=== PATIENT | female | born 1985 | race Caucasian/White ===

== ENCOUNTER 2017-10-26 09:37 | Inpatient (IN) | payer MEDICAID, OTHER ==
[~2017-10-26 09:37] MED LIST: Citric Acid/Sodium Citrate Solution 30 ML Cup PO SCH; Oxytocin/0.9 % Sodium Chloride 30 UNIT/500 ML BAG IV SCH; Sodium Chloride 0.9% 10 ML Syringe FLUSH PRN; Sodium Chloride 0.9% 2.5 ML Syringe FLUSH PRN; ceFAZolin 2 GM in Premix Bag 1 BAG IV ONE
[2017-10-26] MEDS ORDERED: Ondansetron 4 MG/2 ML SDV ONE (10:10)
[2017-10-26] MEDS ORDERED: ePHEDrine 50 MG/ML SDV ONE (10:10)
[2017-10-26] MEDS ORDERED: Oxytocin 10 Units/1 ML SDV ONE (10:10)
[2017-10-26] MEDS ORDERED: Sodium Chloride 0.9% 20 ML ONE ×2 (10:12→12:00)
[2017-10-26] MEDS: Lactated Ringers 1,000 ML IV SCH ×3 (10:25→11:47)
--- NOTE | 2017-10-26 11:06 | PCM.PREANE ---
Preanesthetic Assessment - Anesthesia/Transfusion/Family Hx Anesthesia History: Prior Anesthesia Reaction Other Type of Anesthesia Reaction Comment: panic attacks, anxiety, N&V Family History of Anesthesia Reaction: No Transfusion History: No Prior Transfusion(s) - Review of Systems General: No Symptoms Pulmonary: No Symptoms Cardiovascular: No Symptoms Gastrointestinal: No Symptoms Neurological: No Symptoms Other: Reports: None - Physical Assessment NPO Status Date: 10/25/17 Height: 1.75 m Weight: 117.934 kg ASA Class: 2 Mental Status: Alert & Oriented x3 Airway Class: Mallampati = 1 Dentition: Reports: Normal Dentition ROM/Head Extension: Full Lungs: Clear to Auscultation, Normal Respiratory Effort Cardiovascular: Regular Rate, Regular Rhythm - Lab Values: Laboratory Last Values WBC 9.01 K/uL (4.0-11.0) 10/26/17 10:23 RBC 4.02 M/uL (4.30-5.90) L 10/26/17 10:23 Hgb 11.6 g/dL (12.0-16.0) L 10/26/17 10:23 Hct 34.5 % (36.0-46.0) L 10/26/17 10:23 MCV 85.8 fL (80.0-98.0) 10/26/17 10:23 MCH 28.9 pg (27.0-32.0) 10/26/17 10:23 MCHC 33.6 g/dL (31.0-37.0) 10/26/17 10:23 RDW Std Deviation 41.7 fl (28.0-62.0) 10/26/17 10:23 RDW Coeff of Toni 13 % (11.0-15.0) 10/26/17 10:23 Plt Count 132 K/uL (150-400) L 10/26/17 10:23 MPV 11.60 fL (7.40-12.00) 10/26/17 10:23 Nucleated RBC % 0.0 /100WBC 10/26/17 10:23 Nucleated RBCs # 0 K/uL 10/26/17 10:23 - Allergies Allergies/Adverse Reactions: Allergies Allergy/AdvReac Type Severity Reaction Status Date / Time codeine Allergy Abdominal Verified 10/23/17 10:28 Pain Penicillins Allergy Rash Verified 10/23/17 10:27 promethazine [From Phenergan] Allergy Anxiety Verified 10/23/17 10:28 - Anesthesia Plan Pre-Op Medication Ordered: Antacids - Acknowledgements Anesthesia Type Planned: Spinal Pt an Appropriate Candidate for the Planned Anesthesia: Yes Alternatives and Risks of Anesthesia Discussed w Pt/Guardian: Yes Pt/Guardian Understands and Agrees with Anesthesia Plan: Yes Additional Comments: plan: spinal with intrathecal duramorph wishes sedation for anxiety after baby is born, remote hx of LOBO, off buprenorphine x 4 years. risks and options discussed. 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: Neurological History: Reports: Migraines Other Neuro History: hx of migranes when younger Psychiatric History: Reports: Anxiety, Depression Other Psychiatric History: no taking medication Endocrine/Metabolic History: Reports: Obesity/BMI 30+ - Past Surgical History GI Surgical History: Reports: Cholecystectomy Female Surgical History: Reports: Section, Other (See Below) Other Female Surgeries/Procedures: previous x4, hx of HPV - SUBSTANCE USE Smoking Status *Q: Former Smoker Tobacco Use Within Last Twelve Months: No Recreational Drug Use History: No - HOME MEDS Home Medications: Home Meds Vit W-Ca,Fe,FA(<1 mg) [ Vitamins] 1 tab PO DAILY 10/23/17 [ History] Ranitidine [Zantac] 75 mg PO DAILY 10/23/17 [History] - CURRENT (IN HOUSE) MEDS Current Meds: Current Medications Citric Acid/Sodium Citrate (Bicitra Solution) 30 ml PO .ONCE CARMINA Lactated Ringer's (Ringers, Lactated) 1,000 mls @ 500 mls/hr IV .BOLUS CARMINA Last Admin: 10/26/17 10:25 Dose: 500 mls/hr Oxytocin/Sodium Chloride (Oxytocin 30 Unit/500 Ml-Ns) 30 unit in 500 mls @ 250 mls/hr IV TITRATE CARMINA Sodium Chloride (Saline Flush) 10 ml FLUSH ASDIRECTED PRN PRN Reason: Keep Vein Open Sodium Chloride (Saline Flush) 2.5 ml FLUSH ASDIRECTED PRN PRN Reason: Keep Vein Open Discontinued Medications Ephedrine Sulfate (Ephedrine Sulfate) Confirm Administered Dose 50 mg .ROUTE .STK-MED ONE Stop: 10/26/17 10:11 Cefazolin Sodium/Dextrose 2 gm (/ Premix) 50 mls @ 100 mls/hr IV ONETIME ONE Stop: 10/25/17 14:52 Sodium Chloride (Normal Saline) Confirm Administered Dose 20 mls @ as directed .ROUTE .STK-MED ONE Stop: 10/26/17 10:13 Ondansetron HCl (Zofran) Confirm Administered Dose 4 mg .ROUTE .STK-MED ONE Stop: 10/26/17 10:11 Oxytocin (Pitocin) Confirm Administered Dose 20 unit .ROUTE .STK-MED ONE Stop: 10/26/17 10:11
[2017-10-26] MEDS ORDERED: Octyl 2-Cyanoacrylate 1 Tube ONE ×2 (11:30→13:01)
[2017-10-26] MEDS ORDERED: Morphine PF 1 MG/ML Amp ONE (11:44)
--- NOTE | 2017-10-26 11:44 | PCM.LDHP ---
L&D History of Present Illness - General Date of Service: 10/26/17 Admit Problem/Dx: Patient Status Order with Admit Dx/Problem 10/25/17 14:17 Patient Status [ADT] Routine Admission Diagnosis/Problem Admission Diagnosis/Problem Source of Information: Patient History Limitations: Reports: No Limitations - History of Present Illness Improves with: Reports: None Worsens with: Reports: None Associated Symptoms: Reports: N - Related Data Allergies/Adverse Reactions: Allergies Allergy/AdvReac Type Severity Reaction Status Date / Time codeine Allergy Abdominal Verified 10/23/17 10:28 Pain Penicillins Allergy Rash Verified 10/23/17 10:27 promethazine [From Phenergan] Allergy Anxiety Verified 10/23/17 10:28 Home Medications: Home Meds Vit W-Ca,Fe,FA(<1 mg) [ Vitamins] 1 tab PO DAILY 10/23/17 [ History] Ranitidine [Zantac] 75 mg PO DAILY 10/23/17 [History] Past Medical History Respiratory History: Reports: Asthma Other Respiratory History: hx of asthma as a child Gastrointestinal History: Reports: GERD Genitourinary History: Reports: UTI, Recurrent 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: Neurological History: Reports: Migraines Other Neuro History: hx of migranes when younger Psychiatric History: Reports: Anxiety, Depression Other Psychiatric History: no taking medication Endocrine/Metabolic History: Reports: Obesity/BMI 30+ - Past Surgical History GI Surgical History: Reports: Cholecystectomy Female Surgical History: Reports: Section, Other (See Below) Other Female Surgeries/Procedures: previous x4, hx of HPV Social & Family History - Family History Cardiac: Reports: High Cholesterol, Hypertension, [place] Respiratory: Reports: Asthma, COPD, Other (See Below) Other Respiratory Family Hisory: Emphysema GI: Reports: Inflammatory Bowel Disease, Other (See Below) Other GI Family History: Crohn's Disease OBGYN: Reports: Musculoskeletal: Reports: Arthritis Psychiatric: Reports: Anxiety, Depression Endocrine/Metabolic: Reports: Diabetes, type II Oncologic: Reports: Colon, Lung, Pancreatic - Tobacco Use Smoking Status *Q: Former Smoker Used Tobacco, but Quit: Yes Month/Year Tobacco Last Used: 01/2019 Tobacco Use Comment: no smoking in the last year (on and off before that) - Caffeine Use Caffeine Use: Reports: Coffee, Soda, Tea - Recreational Drug Use Recreational Drug Use: No Drug Use in Last 12 Months: No Recreational Drug Type: Reports: Marijuana/Hashish, Methamphetamine, Morphine, Oxycodone Recreational Drug Last Use: 5 years ago H&P Review of Systems - Review of Systems: Review Of Systems: See Below General: Reports: No Symptoms HEENT: Reports: No Symptoms Pulmonary: Reports: No Symptoms Cardiovascular: Reports: No Symptoms Gastrointestinal: Reports: No Symptoms Genitourinary: Reports: No Symptoms Musculoskeletal: Reports: No Symptoms Skin: Reports: No Symptoms Psychiatric: Reports: No Symptoms Neurological: Reports: No Symptoms Hematologic/Lymphatic: Reports: No Symptoms Immunologic: Reports: No Symptoms L&D Exam - Exam Exam: See Below - Vital Signs Weight: 117.934 kg - OB Specific Contraction Intensity: Mild Movement: Active Heart Tones: Present Presentation: Vertex - Exam General: Alert, Oriented HEENT: PERRLA, Conjunctiva Clear, EACs Clear, EOMI, Hearing Intact, Mucosa Moist & [place], Nares Patent, Normal Nasal Septum, Posterior Pharynx Clear, TMs Clear Neck: Supple, Trachea Midline Lungs: Clear to Auscultation, Normal Respiratory Effort Cardiovascular: Regular Rate, Regular Rhythm GI/Abdominal Exam: Normal Bowel Sounds, Soft, Non-Tender, No Organomegaly, No Distention, No Abnormal Bruit, No Mass, Pelvis Stable Rectal Exam: Normal Exam, Normal Rectal Tone Genitourinary: Normal external exam, Normal bimanual exam, Normal speculum exam Back Exam: Normal Inspection, Full Range of Motion Extremities: Normal Inspection, Normal Range of Motion, Non-Tender, No Pedal Edema, Normal Capillary Refill Skin: Warm, Dry, Intact Neurological: Cranial Nerves Intact, Reflexes Equal Bilateral Psychiatric: Alert, Normal Affect, Normal Mood - Patient Data Lab Results Last 24 hrs: Laboratory Results - last 24 hr 10/26/17 10/26/17 Range/Units 10:23 10:23 WBC 9.01 (4.0-11.0) K/uL RBC 4.02 L (4.30-5.90) M/uL Hgb 11.6 L (12.0-16.0) g/dL Hct 34.5 L (36.0-46.0) % MCV 85.8 (80.0-98.0) fL MCH 28.9 (27.0-32.0) pg MCHC 33.6 (31.0-37.0) g/dL RDW Std Deviation 41.7 (28.0-62.0) fl RDW Coeff of Toni 13 (11.0-15.0) % Plt Count 132 L (150-400) K/uL MPV 11.60 (7.40-12.00) fL Nucleated RBC % 0.0 /100WBC Nucleated RBCs # 0 K/uL Blood Type O NEGATIVE Antibody Screen NEGATIVE Result Diagrams: 10/26/17 10:23 Problem List Initiated/Reviewed/Updated: Yes Orders Last 24hrs: Active Orders 24 hr Category Date Time Status Patient Status [ADT] Routine ADT 10/25/17 14:17 Active Non Stress Test [RC] PER UNIT ROUTINE Care 10/25/17 14:17 Active Procedure Site Prep Instruct [RC] ASDIRECTED Care 10/25/17 14:17 Active Up ad Winter [RC] ASDIRECTED Care 10/25/17 14:17 Active Vital Signs [RC] PER UNIT ROUTINE Care 10/25/17 14:17 Active Citric Acid/Sodium Citrate [Bicitra Solution] Med 10/25/17 14:30 Active 30 ml PO .ONCE Lactated Ringers [Ringers, Lactated] 1,000 ml Med 10/25/17 14:30 Active IV .BOLUS Oxytocin/0.9 % Sodium Chloride [Oxytocin 30 Unit/500 ML Med 10/25/17 14:30 Active -NS] 30 unit in 500 ml IV TITRATE Sodium Chloride 0.9% [Saline Flush] Med 10/25/17 14:17 Active 10 ml FLUSH ASDIRECTED PRN Sodium Chloride 0.9% [Saline Flush] Med 10/25/17 14:17 Active 2.5 ml FLUSH ASDIRECTED PRN Peripheral IV Insertion Adult [OM.PC] Routine Oth 10/25/17 14:17 Ordered Schedule Procedure [COMM] Per Unit Routine Oth 10/25/17 14:17 Ordered Resuscitation Status Routine Resus Stat 10/25/17 14:17 Ordered Medication Orders Citric Acid/Sodium Citrate (Bicitra Solution) 30 ml PO .ONCE CARMINA Lactated Ringer's (Ringers, Lactated) 1,000 mls @ 500 mls/hr IV .BOLUS CARMINA Last Admin: 10/26/17 11:16 Dose: 500 mls/hr Infusion: 10/26/17 11:16 Dose: 500 mls/hr Admin: 10/26/17 10:25 Dose: 500 mls/hr Oxytocin/Sodium Chloride (Oxytocin 30 Unit/500 Ml-Ns) 30 unit in 500 mls @ 250 mls/hr IV TITRATE CARMINA Sodium Chloride (Saline Flush) 10 ml FLUSH ASDIRECTED PRN PRN Reason: Keep Vein Open Sodium Chloride (Saline Flush) 2.5 ml FLUSH ASDIRECTED PRN PRN Reason: Keep Vein Open Assessment/Plan Comment:: Repeat C/section and tubal ligation.
[2017-10-26] MEDS ORDERED: ceFAZolin 1 GM Vial ONE (12:00)
[2017-10-26] MEDS ORDERED: Midazolam 1 MG/ML 2 ML SDV ONE (12:13)
[2017-10-26] MEDS ORDERED: Propofol 200 MG/20 ML SDV ONE (12:19)
[2017-10-26] MEDS ORDERED: Phenylephrine/Normal Saline 100 MCG/ML 10 ML Syringe ONE (12:20)
[2017-10-26] MEDS ORDERED: Glycopyrrolate 0.2 MG/ML SDV ONE (12:24)
[2017-10-26] MEDS ORDERED: fentaNYL 100 MCG/2 ML SDV ONE ×2 (12:45→12:53)
[2017-10-26] MEDS ORDERED: Ondansetron 4 MG/2 ML SDV IV PRN (13:03)
[2017-10-26] MEDS ORDERED: Acetaminophen/oxyCODONE 325-5 MG Tab PO PRN ×2 (13:03)
[2017-10-26] MEDS ORDERED: Bisacodyl 10 MG Supp RECTAL PRN (13:03)
[2017-10-26] MEDS ORDERED: Lanolin 100% Cream 7 GM Tube TOP PRN (13:03)
--- NOTE | 2017-10-26 13:06 | PCM.OPNOTE ---
- General Post-Op/Procedure Note Date of Surgery/Procedure: 10/26/17 Operative Procedure(s): Repeat C/section, Bilateral Salpengectomy Post-Op Diagnosis: Same Anesthesia Technique: Spinal Primary Surgeon: Mohsen Clements EBL in mLs: 750 Complications: None Condition: Good
[2017-10-26] MEDS ORDERED: Nalbuphine 10 MG/ML 10 ML MDV IVPUSH PRN (13:10)
[2017-10-26] MEDS ORDERED: Lactated Ringers 1,000 ML IV SCH (13:15)
--- NOTE | 2017-10-26 13:31 | PCM.POSTAN ---
POST ANESTHESIA ASSESSMENT - MENTAL STATUS Mental Status: Alert, Oriented - VITAL SIGNS Pulse Rate: 77 SaO2: 94 (RA) Resp Rate: 16 Blood Pressure: 114/60 - RESPIRATORY Respiratory Status: Respiratory Rate WNL, Airway Patent, O2 Saturation Stable - CARDIOVASCULAR CV Status: Pulse Rate WNL, Blood Pressure Stable - GASTROINTESTINAL GI Status: No Symptoms - PAIN Pain Score: 3 - POST OP HYDRATION Hydration Status: Adequate & Stable
[2017-10-26] MEDS: Ketorolac 30 MG/ML SDV IVPUSH SCH ×2 (13:36→19:49)
[2017-10-26] MEDS: fentaNYL 100 MCG/2 ML SDV IVPUSH PRN ×2 (14:35→20:01)
--- NOTE | 2017-10-26 15:42 | OR ---
SURGEON: Mohsen Clements MD DATE OF PROCEDURE: PREOPERATIVE DIAGNOSES: 1. Intrauterine 39+ weeks. 2. Previous multiple sections. 3. Desires permanent sterilization. POSTOPERATIVE DIAGNOSES: 1. Intrauterine 39+ weeks. 2. Previous multiple sections. 3. Desires permanent sterilization. OPERATION PERFORMED: Repeat low-transverse section with bilateral salpingectomy. FILM PROCESSOR: OR valery. ANESTHESIA: Spinal, Vishnu Thomason. ESTIMATED BLOOD LOSS: 750 mL. COMPLICATIONS: None. FINDINGS: Normal uterus, tubes, and ovaries. Female fetus. score reported to be 8 and 9. The weight is not available. INDICATION FOR SURGERY: This patient is 32. She had multiple previous sections. She is admitted for elective repeat section. She desired permanent sterilization. She is approved by the ethic committee for sterilization and consented for bilateral salpingectomy. PROCEDURE IN DETAIL: The patient was brought to the OR, properly identified. After adequate level of spinal anesthesia with Love catheter in the bladder, the patient was prepped and draped in sterile fashion as usual. Low-transverse Pfannenstiel skin incision. Radha's fascia, rectus fascia opened in direction of incision where 2 recti muscles were and peritoneal cavity was entered. Bladder flap was raised in the usual manner. Then a low-transverse uterine incision was done and extended manually with hand. Fetus was in a vertex position, delivered without any problem. It was a female, cried immediately. score reported to be 8 and 9. The weight is not available. The placenta delivered spontaneous, complete, and intact. Repair of the lower uterine segment was done with 2-0 Vicryl continuous interlocking in 2 layers. Reperitonealization done with 3-0 Vicryl continuous. Attention paid to the tubes at this time and bilateral salpingectomy accomplished by suture ligating the mesial appendix on both sides with the vessels in it and the tubes excised and removed, inspection of the area where the tube incision was done. There was no oozing, no bleeding. The peritoneal cavity evacuated completely from all blood clot and closed with 3- 0 Vicryl continuous and then the rectus fascia was closed with #1 PDS double strand continuous; the Radha's fascia with 3-0 Vicryl continuous; the skin with skin clips, Insorb, and Dermabond. Instrument and sponge count was correct. The patient tolerated the procedure well, went to recovery room in stable general condition. RUSSELL / CHRISTO /[id number]
[2017-10-26] MEDS: diphenhydrAMINE 50 MG/ML SDV IVPUSH PRN (19:58)
[2017-10-26] MEDS: Ibuprofen 800 MG Tab PO PRN (19:59)
[2017-10-26] MEDS: Docusate Sodium 100 MG Cap PO SCH (20:00)
[2017-10-27] MEDS: Ketorolac 30 MG/ML SDV IVPUSH SCH (02:41)
[2017-10-27] MEDS: Ibuprofen 800 MG Tab PO PRN ×2 (04:00→13:02)
[2017-10-27] MEDS: fentaNYL 100 MCG/2 ML SDV IVPUSH PRN ×2 (07:54→13:06)
[2017-10-27] MEDS: diphenhydrAMINE 50 MG/ML SDV IVPUSH PRN (08:42)
[2017-10-27] MEDS: Docusate Sodium 100 MG Cap PO SCH (08:42)
--- NOTE | 2017-10-27 11:36 | PCM.PNPP ---
- General Info Date of Service: 10/27/17 Functional Status: Reports: Pain Controlled - Review of Systems General: Reports: No Symptoms HEENT: Reports: No Symptoms Pulmonary: Reports: No Symptoms Cardiovascular: Reports: No Symptoms Gastrointestinal: Reports: No Symptoms Genitourinary: Reports: No Symptoms Musculoskeletal: Reports: No Symptoms Skin: Reports: No Symptoms Neurological: Reports: No Symptoms Psychiatric: Reports: No Symptoms - General Info Date of Service: 10/27/17 - Patient Data Vital Signs - Most Recent: Last Vital Signs Temp 36.9 C 10/27/17 09:00 Pulse 80 10/27/17 10:00 Resp 16 10/27/17 10:00 BP 128/69 10/27/17 09:00 Pulse Ox 96 10/27/17 10:00 Weight - Most Recent: 117.934 kg I&O - Last 24 Hours: Intake & Output 10/26/17 10/27/17 10/27/17 22:59 06:59 14:59 Intake Total 502 Output Total 575 850 Balance -73 -850 Lab Results - Last 24 Hours: Laboratory Results - last 24 hr 10/26/17 10/27/17 Range/Units 14:47 05:00 Hgb 9.8 L (12.0-16.0) g/dL Hct 29.3 L (36.0-46.0) % Screen NEGATIVE (NEGATIVE) RhIG Candidate? YES Rhogam Indicated YES, BABY RH POS H Med Orders - Current: Current Medications Bisacodyl (Dulcolax) 10 mg RECTAL .ONCE PRN PRN Reason: Constipation Citric Acid/Sodium Citrate (Bicitra Solution) 30 ml PO .ONCE CARMINA Last Admin: 10/26/17 11:44 Dose: 30 ml Diphenhydramine HCl (Benadryl) 25 mg IVPUSH Q6H PRN PRN Reason: Itching or Nausea Last Admin: 10/27/17 08:42 Dose: 25 mg Docusate Sodium (Colace) 100 mg PO BID CARMINA Last Admin: 10/27/17 08:42 Dose: 100 mg Emollient Ointment (Lansinoh Hpa) 0 gm TOP ASDIRECTED PRN PRN Reason: Sore Nipples Fentanyl (Sublimaze) 50 mcg IVPUSH Q5M PRN PRN Reason: Pain (severe 7-10) Stop: 10/27/17 13:11 Last Admin: 10/27/17 07:54 Dose: 50 mcg Lactated Ringer's (Ringers, Lactated) 1,000 mls @ 500 mls/hr IV .BOLUS [facility] Last Admin: 10/26/17 11:47 Dose: 500 mls/hr Oxytocin/Sodium Chloride (Oxytocin 30 Unit/500 Ml-Ns) 30 unit in 500 mls @ 250 mls/hr IV TITRATE CARMINA Lactated Ringer's (Ringers, Lactated) 1,000 mls @ 125 mls/hr IV ASDIRECTED CARMINA Last Admin: 10/26/17 16:18 Dose: 125 mls/hr Ibuprofen (Motrin) 800 mg PO Q8H PRN PRN Reason: mild pain or fever Last Admin: 10/27/17 04:00 Dose: 800 mg Nalbuphine HCl (Nubain) 2.5 mg IVPUSH Q3H PRN PRN Reason: Pruritis Stop: 10/27/17 13:11 Last Admin: 10/26/17 16:26 Dose: 2.5 mg Ondansetron HCl (Zofran) 4 mg IV Q4H PRN PRN Reason: Nausea/Vomiting Oxycodone/Acetaminophen (Percocet 325-5 Mg) 1 tab PO Q4H PRN PRN Reason: Pain (moderate 4-6) Oxycodone/Acetaminophen (Percocet 325-5 Mg) 2 tab PO Q4H PRN PRN Reason: Pain (moderate 4-6) Sodium Chloride (Saline Flush) 10 ml FLUSH ASDIRECTED PRN PRN Reason: Keep Vein Open Sodium Chloride (Saline Flush) 2.5 ml FLUSH ASDIRECTED PRN PRN Reason: Keep Vein Open Discontinued Medications Cefazolin Sodium (Ancef) Confirm Administered Dose 2 gm .ROUTE .STK-MED ONE Stop: 10/26/17 12:01 Ephedrine Sulfate (Ephedrine Sulfate) Confirm Administered Dose 50 mg .ROUTE .STK-MED ONE Stop: 10/26/17 10:11 Fentanyl (Sublimaze) Confirm Administered Dose 100 mcg .ROUTE .STK-MED ONE Stop: 10/26/17 12:46 Fentanyl (Sublimaze) Confirm Administered Dose 100 mcg .ROUTE .STK-MED ONE Stop: 10/26/17 12:54 Glycopyrrolate (Robinul) Confirm Administered Dose 0.2 mg .ROUTE .STK-MED ONE Stop: 10/26/17 12:25 Cefazolin Sodium/Dextrose 2 gm (/ Premix) 50 mls @ 100 mls/hr IV ONETIME ONE Stop: 10/25/17 14:52 Last Admin: 10/26/17 17:41 Dose: Not Given Sodium Chloride (Normal Saline) Confirm Administered Dose 20 mls @ as directed .ROUTE .STK-MED ONE Stop: 10/26/17 10:13 Sodium Chloride (Normal Saline) Confirm Administered Dose 20 mls @ as directed .ROUTE .STK-MED ONE Stop: 10/26/17 12:01 Ketorolac Tromethamine (Toradol) 30 mg IVPUSH Q6H CARMINA Stop: 10/27/17 13:16 Last Admin: 10/27/17 02:41 Dose: Not Given Midazolam HCl (Versed 1 Mg/Ml) Confirm Administered Dose 2 mg .ROUTE .STK-MED ONE Stop: 10/26/17 12:14 Morphine Sulfate (Duramorph Pf) Confirm Administered Dose 1 mg .ROUTE .STK-MED ONE Stop: 10/26/17 11:45 Octyl Cyanoacrylate (Dermabond Advance) Confirm Administered Dose 1 applic .ROUTE .STK-MED ONE Stop: 10/26/17 11:31 Octyl Cyanoacrylate (Dermabond Advance) Confirm Administered Dose 1 applic .ROUTE .STK-MED ONE Stop: 10/26/17 13:02 Ondansetron HCl (Zofran) Confirm Administered Dose 4 mg .ROUTE .STK-MED ONE Stop: 10/26/17 10:11 Oxytocin (Pitocin) Confirm Administered Dose 20 unit .ROUTE .STK-MED ONE Stop: 10/26/17 10:11 Phenylephrine HCl (Phenylephrine In Ns 100 Mcg/Ml) Confirm Administered Dose 1 mg .ROUTE .STK-MED ONE Stop: 10/26/17 12:21 Propofol (Diprivan 20 Ml) Confirm Administered Dose 200 mg .ROUTE .STK-MED ONE Stop: 10/26/17 12:20 - Infant Interaction Infant Disposition, : in Room with Family Infant Interaction: Holding Feeding: Attempted ; Nursed Fair/Poor Support Person: Significant Other - Recovery Exam Fundal Tone: Firm Fundal Level: 1 Fingerbreadths Below Umbilicus Fundal Placement: Midline Lochia Amount: Scant Lochia Color: Rubra/Red Perineum Description: Intact, Minimal Bruising/Swelling Episiotomy/Laceration: None Bladder Status: Voiding Urinary Elimination: Indwelling Catheter - Exam General: Alert, Oriented HEENT: Pupils Equal Neck: Supple Lungs: Clear to Auscultation, Normal Respiratory Effort Cardiovascular: Regular Rate, Regular Rhythm GI/Abdominal Exam: Normal Bowel Sounds, Soft, Non-Tender, No Organomegaly, No Distention, No Abnormal Bruit, No Mass, Pelvis Stable Extremities: Normal Inspection, Normal Range of Motion, Non-Tender, No Pedal Edema, Normal Capillary Refill Skin: Warm, Dry, Intact Wound/Incisions: Healing Well Neurological: No New Focal Deficit Psy/Mental Status: Alert, Normal Affect, Normal Mood - Problem List Review Problem List Initiated/Reviewed/Updated: Yes - My Orders Last 24 Hours: My Active Orders 10/26/17 13:03 Patient Status [ADT] Routine Ambulate [RC] PER UNIT ROUTINE Communication Order [RC] PER UNIT ROUTINE Communication Order [RC] PER UNIT ROUTINE Communication Order [RC] Per Unit Routine May Shower [RC] ASDIRECTED RT Incentive Spirometry [RC] Q2HWA Vital Signs [RC] PER UNIT ROUTINE Acetaminophen/oxyCODONE [Percocet 325-5 MG] 1 tab PO Q4H PRN Acetaminophen/oxyCODONE [Percocet 325-5 MG] 2 tab PO Q4H PRN Bisacodyl [Dulcolax] 10 mg RECTAL .ONCE PRN Ibuprofen [Motrin] 800 mg PO Q8H PRN Lanolin [Lansinoh HPA] See Dose Instructions TOP ASDIRECTED PRN Ondansetron [Zofran] 4 mg IV Q4H PRN diphenhydrAMINE [Benadryl] 25 mg IVPUSH Q6H PRN Assess Lochia [WOMSER] Per Unit Routine Assess Uterine Involution [WOMSER] Per Unit Routine Breast Pump [WOMSER] Per Unit Routine Peripheral IV Discontinue [OM.PC] Routine Sequential Compression Device [OM.PC] Per Unit Routine 10/26/17 13:15 Lactated Ringers [Ringers, Lactated] 1,000 ml IV ASDIRECTED 10/26/17 21:00 Docusate Sodium [Colace] 100 mg PO BID 10/27/17 Breakfast Regular Diet [DIET] - Assessment Assessment:: Status post elective repeat section and bilateral salpingectomy for sterilization postoperative day #1 the patient is doing well afebrile moving about Love catheter is DC'd voiding without any problem there is minimum amount of bleeding. We'll increase her activity gradually today and consider discharging her in the morning - Plan Plan:: Repeat C/section and tubal ligation.
--- NOTE | 2017-10-27 17:19 | PCM.DCSUM1 ---
Discharge Summary - Hospital Course Free Text/Narrative:: Discharge home with infant. Follow up in 1 week for incision check and 6 weeks for post Diagnosis: Stroke: No - Discharge Data Discharge Date: 10/27/17 Discharge Disposition: Home, Self-Care 01 Condition: Good - Patient Summary/Data Operative Procedure(s) Performed: Repeat C/section, Bilateral Salpengectomy - Patient Instructions Diet: Usual Diet as Tolerated Activity: As Tolerated, No Strenuous Activities, Rest and Relax Today Driving: May Drive Today Showering/Bathing: May Shower Wound/Incision Care: Keep Operative Site/Wound Site Clean and Dry Notify Provider of: Fever, Increased Pain, Swelling and Redness, Drainage, Nausea and/or Vomiting Other/Special Instructions: Discharge home with infant. Follow up in 1 week for incision check and 6 weeks for post - Discharge Plan Home Medications: Home Meds Vit W-Ca,Fe,FA(<1 mg) [ Vitamins] 1 tab PO DAILY 10/23/17 [ History] Ranitidine [Zantac] 75 mg PO DAILY 10/23/17 [History] Patient Handouts: Tubal Ligation, Acetaminophen; Oxycodone tablets, Ibuprofen tablets and capsules, Delivery, Care After, Home Care Instructions for Mom Referrals: Leticia Diggs, [facility] [[facility]] - 11/02/17 2:45 pm (1 Week appointment with Leticia Diggs on 11/02/17 at 2:45pm 6 Week appointment with Leticia Diggs on 12/13/17 at 10:45am) - General Info Date of Service: 10/27/17 Admission Dx/Problem (Free Text: Patient Status Order with Admit Dx/Problem 10/25/17 14:17 Patient Status [ADT] Routine Admission Diagnosis/Problem Admission Diagnosis/Problem Functional Status: Reports: Pain Controlled, Tolerating Diet, Ambulating, Urinating - Review of Systems General: Reports: No Symptoms HEENT: Reports: No Symptoms Pulmonary: Reports: No Symptoms Cardiovascular: Reports: No Symptoms Gastrointestinal: Reports: No Symptoms Genitourinary: Reports: No Symptoms Musculoskeletal: Reports: No Symptoms Skin: Reports: No Symptoms Neurological: Reports: No Symptoms Psychiatric: Reports: No Symptoms - Patient Data Vitals - Most Recent: Last Vital Signs Temp 36.4 C 10/27/17 12:00 Pulse 82 10/27/17 12:00 Resp 16 10/27/17 12:00 BP 126/72 10/27/17 12:00 Pulse Ox 96 10/27/17 12:00 Weight - Most Recent: 117.934 kg I&O - Last 24 hours: Intake & Output 10/27/17 10/27/17 10/27/17 06:59 14:59 22:59 Output Total 850 Balance -850 Lab Results - Last 24 hrs: Laboratory Results - last 24 hr 10/26/17 10/27/17 Range/Units 14:47 05:00 Hgb 9.8 L (12.0-16.0) g/dL Hct 29.3 L (36.0-46.0) % Screen NEGATIVE (NEGATIVE) RhIG Candidate? YES Rhogam Indicated YES, BABY RH POS H Med Orders - Current: Current Medications Bisacodyl (Dulcolax) 10 mg RECTAL .ONCE PRN PRN Reason: Constipation Citric Acid/Sodium Citrate (Bicitra Solution) 30 ml PO .ONCE [facility] Last Admin: 10/26/17 11:44 Dose: 30 ml Diphenhydramine HCl (Benadryl) 25 mg IVPUSH Q6H PRN PRN Reason: Itching or Nausea Last Admin: 10/27/17 08:42 Dose: 25 mg Docusate Sodium (Colace) 100 mg PO BID [facility] Last Admin: 10/27/17 08:42 Dose: 100 mg Emollient Ointment (Lansinoh Hpa) 0 gm TOP ASDIRECTED PRN PRN Reason: Sore Nipples Lactated Ringer's (Ringers, Lactated) 1,000 mls @ 500 mls/hr IV .BOLUS [facility] Last Admin: 10/26/17 11:47 Dose: 500 mls/hr Oxytocin/Sodium Chloride (Oxytocin 30 Unit/500 Ml-Ns) 30 unit in 500 mls @ 250 mls/hr IV TITRATE CARMINA Lactated Ringer's (Ringers, Lactated) 1,000 mls @ 125 mls/hr IV ASDIRECTED [facility] Last Admin: 10/26/17 16:18 Dose: 125 mls/hr Ibuprofen (Motrin) 800 mg PO Q8H PRN PRN Reason: mild pain or fever Last Admin: 10/27/17 13:02 Dose: 800 mg Ondansetron HCl (Zofran) 4 mg IV Q4H PRN PRN Reason: Nausea/Vomiting Oxycodone/Acetaminophen (Percocet 325-5 Mg) 1 tab PO Q4H PRN PRN Reason: Pain (moderate 4-6) Last Admin: 10/27/17 14:12 Dose: 1 tab Oxycodone/Acetaminophen (Percocet 325-5 Mg) 2 tab PO Q4H PRN PRN Reason: Pain (moderate 4-6) Sodium Chloride (Saline Flush) 10 ml FLUSH ASDIRECTED PRN PRN Reason: Keep Vein Open Sodium Chloride (Saline Flush) 2.5 ml FLUSH ASDIRECTED PRN PRN Reason: Keep Vein Open Discontinued Medications Cefazolin Sodium (Ancef) Confirm Administered Dose 2 gm .ROUTE .STK-MED ONE Stop: 10/26/17 12:01 Ephedrine Sulfate (Ephedrine Sulfate) Confirm Administered Dose 50 mg .ROUTE .STK-MED ONE Stop: 10/26/17 10:11 Fentanyl (Sublimaze) Confirm Administered Dose 100 mcg .ROUTE .STK-MED ONE Stop: 10/26/17 12:46 Fentanyl (Sublimaze) Confirm Administered Dose 100 mcg .ROUTE .STK-MED ONE Stop: 10/26/17 12:54 Fentanyl (Sublimaze) 50 mcg IVPUSH Q5M PRN PRN Reason: Pain (severe 7-10) Stop: 10/27/17 13:11 Last Admin: 10/27/17 13:06 Dose: 50 mcg Glycopyrrolate (Robinul) Confirm Administered Dose 0.2 mg .ROUTE .STK-MED ONE Stop: 10/26/17 12:25 Cefazolin Sodium/Dextrose 2 gm (/ Premix) 50 mls @ 100 mls/hr IV ONETIME ONE Stop: 10/25/17 14:52 Last Admin: 10/26/17 17:41 Dose: Not Given Sodium Chloride (Normal Saline) Confirm Administered Dose 20 mls @ as directed .ROUTE .STK-MED ONE Stop: 10/26/17 10:13 Sodium Chloride (Normal Saline) Confirm Administered Dose 20 mls @ as directed .ROUTE .STK-MED ONE Stop: 10/26/17 12:01 Ketorolac Tromethamine (Toradol) 30 mg IVPUSH Q6H [facility] Stop: 10/27/17 13:16 Last Admin: 10/27/17 02:41 Dose: Not Given Midazolam HCl (Versed 1 Mg/Ml) Confirm Administered Dose 2 mg .ROUTE .STK-MED ONE Stop: 10/26/17 12:14 Morphine Sulfate (Duramorph Pf) Confirm Administered Dose 1 mg .ROUTE .STK-MED ONE Stop: 10/26/17 11:45 Nalbuphine HCl (Nubain) 2.5 mg IVPUSH Q3H PRN PRN Reason: Pruritis Stop: 10/27/17 13:11 Last Admin: 10/26/17 16:26 Dose: 2.5 mg Octyl Cyanoacrylate (Dermabond Advance) Confirm Administered Dose 1 applic .ROUTE .STK-MED ONE Stop: 10/26/17 11:31 Octyl Cyanoacrylate (Dermabond Advance) Confirm Administered Dose 1 applic .ROUTE .STK-MED ONE Stop: 10/26/17 13:02 Ondansetron HCl (Zofran) Confirm Administered Dose 4 mg .ROUTE .STK-MED ONE Stop: 10/26/17 10:11 Oxytocin (Pitocin) Confirm Administered Dose 20 unit .ROUTE .STK-MED ONE Stop: 10/26/17 10:11 Phenylephrine HCl (Phenylephrine In Ns 100 Mcg/Ml) Confirm Administered Dose 1 mg .ROUTE .STK-MED ONE Stop: 10/26/17 12:21 Propofol (Diprivan 20 Ml) Confirm Administered Dose 200 mg .ROUTE .STK-MED ONE Stop: 10/26/17 12:20 - Exam General: Reports: Alert, Oriented, Cooperative, No Acute Distress Lungs: Reports: Clear to Auscultation, Normal Respiratory Effort Cardiovascular: Reports: Regular Rate, Regular Rhythm, No Murmurs GI/Abdominal Exam: Soft, Non-Tender (Female) Exam: Normal External Exam, Normal Speculum Exam, Normal Bimanual Exam Rectal (Female) Exam: Deferred Back Exam: Reports: Normal Inspection, Full Range of Motion Extremities: Normal Inspection, Normal Range of Motion, Non-Tender, No Pedal Edema, Normal Capillary Refill Skin: Reports: Warm, Dry, Intact Wound/Incisions: Reports: Healing Well Neurological: Reports: No New Focal Deficit, Normal Gait, Normal Speech, Normal Tone, Strength Equal Bilateral Psy/Mental Status: Reports: Alert, Normal Affect, Normal Mood
== END 2017-10-27 18:50 | disposition home or self-care (01) | DRG 766 ==
LOC: MW.OB 09:37
PROVIDERS: ADMIT Obstetrics & Gynecology; ATTEND Obstetrics & Gynecology
PROC: 10D00Z1 Extraction of Products of Conception, Low, Open Approach (ICD-10-PCS; principal; 2017-10-26)
PROC: 0UT70ZZ Resection of Bilateral Fallopian Tubes, Open Approach (ICD-10-PCS; 2017-10-26)
DX: O34.211 Maternal care for low transverse scar from previous cesarean delivery (principal); Z3A.39 39 weeks gestation of pregnancy; Z37.0 Single live birth; Z30.2 Encounter for sterilization; E66.9 Obesity, unspecified; O99.613 Diseases of the digestive system complicating pregnancy, third trimester; K21.9 Gastro-esophageal reflux disease without esophagitis; Z79.899 Other long term (current) drug therapy; Z87.891 Personal history of nicotine dependence; Z68.38 Body mass index [BMI] 38.0-38.9, adult
CPT/HCPCS: 36415; 59025; 85014; 85018; 85027; 85460; 86850; 86900; 86901; A9270-GY; J0690; J1200; J1885; J2250; J2274; J2300; J2370; J2405; J2590; J2704; J2790; J3010; J3490; J7120